=== PATIENT | male | born 1965 | race Caucasian/White ===

== ENCOUNTER 2020-04-09 16:28 | Emergency (ER) | payer OTHER ==
[~2020-04-09] VITALS: Ht 180.3 cm; Wt 88.0 kg
--- OUTSIDE RECORDS SUMMARY | ~2020-04-09 | XMS | Encounter Summary ---
Demographics + + + | Address | [address] | | | [place] [address] | + + + | Home Phone | | + + + | Preferred Language | Unknown | + + + | Marital Status | Single | + + + | Orthodox Affiliation | Unknown | + + + | Race | Unknown | + + + | Ethnic Group | Unknown | + + + Author + + + | Author | [facility] | | | and [place] | + + + | Organization | [facility] | | | and [place] | + + + | Address | Unknown | + + + | Phone | Unavailable | + + + Support + + +---------+ + | Name | Relationship | Address | Phone | + + +---------+ + | Tuan Ferro | [place] | Unknown | | + + +---------+ + Care Team Providers + +------+ + | Care Property Worker Name | Role | Phone | + +------+ + | Mc Martinez MD | PCP | | + +------+ + Encounter Details +--------+ + + + + | Date | Type | Department | Care Team | Description | +--------+ + + + + | 05/06/ | Abstract | [facility] | Santos Huff MD | Pure | | 2013 | | OTOLARYNGOLOGY [address] | [address] | hypercholesterolemia | | | | [address] | [address] [place] | (Primary Dx); | | | | [place] | [place] [address] | Unspecified | | | | [address] | [phone] | hypothyroidism; | | | | [phone] | | Cervicalgia; | | | | | | Displacement of | | | | | | cervical | | | | | | intervertebral disc | | | | | | without myelopathy; | | | | | | Disturbance of skin | | | | | | sensation; Primary | | | | | | localized | | | | | | osteoarthrosis, | | | | | | lower leg, left | +--------+ + + + + Social History + +-------+ +--------+------+ | Tobacco Use | Types | Packs/Day | Years | Date | | | | | Used | | + +-------+ +--------+------+ | Never Assessed | | | | | + +-------+ +--------+------+ + + + | Sex Assigned at | Date Recorded | | | | + + + | Not on file | | + + + documented as of this encounter Plan of Treatment Not on filedocumented as of this encounter Visit Diagnoses + + | Diagnosis | + + | Pure hypercholesterolemia - Primary | + + | Unspecified hypothyroidism | + + | Cervicalgia | + + | Displacement of cervical intervertebral disc without myelopathy | + + | Disturbance of skin sensation | + + | Primary localized osteoarthrosis, lower leg, left | + + documented in this encounter"
--- OUTSIDE RECORDS SUMMARY | ~2020-04-09 | XMS | Encounter Summary ---
Demographics + + + | Address | [address] | | | [place] [address] | + + + | Home Phone | | + + + | Preferred Language | Unknown | + + + | Marital Status | Single | + + + | Episcopal Affiliation | Unknown | + + + | Race | Unknown | + + + | Ethnic Group | Unknown | + + + Author + + + | Author | [facility] | | | and [place] | + + + | Organization | [facility] | | | and [place] [...] Team Providers + +------+ + | Care Hotel Casino Floorperson Name | Role | Phone | + +------+ + | Mc Martinez MD | PCP | | + +------+ + Reason for Visit + + + | Reason | Comments | + + + | New Patient | ear pain in both ears but started i nthe left ear and has moved | | | to the right ear | + + + Evaluate & Treat (Routine) +--------+--------+ + + + + | Status | Reason | Specialty | Diagnoses / | Referred By | Referred To | | | | | Procedures | Contact | Contact | +--------+--------+ + + + + | Closed | | Otolaryngolog | Diagnoses | Juan, | Santos Huff | | | | y | Michelle, | Mc | MD Brittany [address] | | | | | unspecified | MD Arnaldo | [address] | | | | | ear pain/ | [address] | [address] | | | | | pcp Juan/ | [facility] | [place] | | | | | pt/ [place] | [place], [place] | [place] [address] | | | | | Procedures | [address] | Phone: | | | | | NEW PATIENT | Phone: | [phone] | | | | | | [phone] | Fax: | | | | | | Fax: | [phone] | | | | | | [phone] | | +--------+--------+ + + + + Encounter Details +--------+---------+ + + + | Date | Type | Department | Care Team | Description | +--------+---------+ + + + | 05/14/ | Office | [facility] | Santos Huff MD | Dysfunction of | | 2013 | Visit | OTOLARYNGOLOGY [address] | [address] | eustachian tube, | | | | [address] | [address] [place] | bilateral (Primary | | | | [place], [place] | [place] [address] | Dx); Candidiasis of | | | | [address] | [phone] | mouth | | | | [phone] | | | +--------+---------+ + + + Social History + +-------+ +--------+------+ | Tobacco Use | Types | Packs/Day | Years | Date | | | | | Used | | + +-------+ +--------+------+ | Never Smoker | | | | | + +-------+ +--------+------+ + + +---------+ + | Alcohol Use | Drinks/Week | oz/Week | Comments | + + +---------+ + | Not Asked | | | | + + +---------+ + + + + | Sex Assigned at | Date Recorded | | | | + + + | Not on file | | + + + documented as of this encounter Last Filed Vital Signs + + + + + | Vital Sign | Reading | Time Taken | Comments | + + + + + | Blood Pressure | 130/70 | 05/14/2014 11:19 AM | | | | | PDT | | + + + + + | Pulse | 90 | 05/14/2014 11:19 AM | | | | | PDT | | + + + + + | Temperature | - | - | | + + + + + | Respiratory Rate | - | - | | + + + + + | Oxygen Saturation | - | - | | + + + + + | Inhaled Oxygen | - | - | | | Concentration | | | | + + + + + | Weight | 83.9 kg (185 lb) | 05/14/2014 11:19 AM | | | | | PDT | | + + + + + | Height | 180.3 cm (5' 11") | 05/14/2014 11:19 AM | | | | | PDT | | + + + + + | Body Mass Index | 25.8 | 05/14/2014 11:19 AM | | | | | PDT | | + + + + + documented in this encounter Progress Notes Santos Huff MD - 05/14/2014 1:18 PM PDTSee dictation #[id number] signed by Law Huff MD at 05/14/2014 1:23 PM Santos Drake MD - 05/14/2014 12:00 AM PDT ENT AND AUDIOLOGY [address] [place], [place] [address] FAX: [phone] OFFICE VISIT HISTORY: The patient has had problems with his ears on both sides. He notes that at times t hey feel plugged up. They will get so plugged that they have some pain and pressure. He is able then to pop his ears and this relieves the pain, but then the ears tend to have a amairani ing, puttering sound and sounds like eustachian tube dysfunction. He has not had any proble ms with his balance and when they are plugged, he does not hear as well as he should. He al so has a sore place on the right side of his tongue that he would like to have examined. No other complaints at the current time. PHYSICAL EXAMINATION GENERAL: Examination shows an alert 48-year-old male. HEENT: Skin of the face, nose, and ears all appear smooth and healthy. Parotid and submand ibular glands were smooth. Facial movement symmetrical, without any weakness noted. Ear can als are open, they are clear. Drums were clear. No middle ear effusion or abnormality noted. No evidence of any retraction. Nasal passages: No obstruction. No mass or lesion seen on e ither side. Floor of the mouth, buccal mucosa, hard palate, teeth, lips and gums all appear to be healthy. He has a lot of whitish coating on his tongue. He has a reddened area anter ior on the lateral edge of his tongue for about 0.5 cm long. It is not firm or elevated but it is in the whitish coating of what appears to be thrush. No mass seen in the oropharynx. Posterior pharyngeal wall was smooth. Tongue and soft palate otherwise move symmetrically. NECK: There are no masses or lymphadenopathy. Thyroid gland is smooth. Trachea is midline. Good range of motion of the neck without any pain or discomfort noted. The patient was sent for tympanograms and these came back very normal A-shaped tympanograms . IMPRESSION 1. EUSTACHIAN TUBE DYSFUNCTION. 2. ORAL THRUSH. PLAN: The patient was placed on nystatin oral suspension. He was also placed on some Flonas e to see if this helps the eustachian tubes to function. He will be seen again in 1 month's time and the area on his tongue will be reexamined. Santos Huff MD GM / AF JOB #: [id number] signed by Santos Huff MD at 05/19/2014 10:26 AM David ferrer in this encounter Plan of Treatment Not on filedocumented as of this encounter Visit Diagnoses + + | Diagnosis | + + | Dysfunction of Eustachian tube, bilateral - Primary | + + | Candidiasis of mouth | + + documented in this encounter
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
--- OUTSIDE RECORDS SUMMARY | ~2020-04-09 | XMS | Encounter Summary ---
Demographics + + + | Address | [address] | | | [place] [address] | + + + | Home Phone | | + + + | Preferred Language | Unknown | + + + | Marital Status | Single | + + + | Samaritan Affiliation | Unknown | + + + | Race | Unknown | + + + | Ethnic Group | Unknown | + + + Author + + + | Author | [facility] | | | and [place] | + + + | Organization | [facility] | | | and [place] | [...] Team Providers + +------+ + | Care Manufacturing Machine Operator Name | Role | Phone | + +------+ + PCP | Unavailable | + +------+ + Encounter Details +--------+ + + + + | Date | Type | Department | Care Team | Description | +--------+ + + + + | 04/14/ | Hospital | [facility] | Ashu Moreno E, | | | 2004 | Encounter | [facility] | [address] | | | | | [address] | [place] | | | | | [place] | [phone] | | | | | [address] | | | | | | [phone] | | | +--------+ + + + + Social [...] filedocumented as of this encounter Visit Diagnoses Not on filedocumented in this encounter"
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
--- OUTSIDE RECORDS SUMMARY | ~2020-04-09 | XMS | Encounter Summary ---
Demographics + + + | Address | [address] | | | [place] [address] | + + + | Home Phone | | + + + | Preferred Language | Unknown | + + + | Marital Status | Single | + + + | Samaritan Affiliation | Unknown | + + + | Race | Unknown | + + + | Ethnic Group | Unknown | + + + Author + + + | Author | [facility] | | | and [place] | + + + | Organization | [facility] | | | and [place] [...] Team Providers + +------+ + | Care Grain Roaster Name | Role | Phone | + +------+ + PCP | Unavailable | + +------+ + Encounter Details +--------+ + + + + | Date | Type | Department | Care Team | Description | +--------+ + + + + | 03/12/ | Hospital | [facility] | Travis Peres | | | 2003 | Encounter | MED CTR XRAY [address] | MD Arnaldo Need | | | | | [place] | updated address | | | | | [place] [address] | | | | | | [phone] | | | +--------+ + + + [...]
--- OUTSIDE RECORDS SUMMARY | ~2020-04-09 | XMS | Encounter Summary ---
Demographics + + + | Address | [address] | | | [place] [address] | + + + | Home Phone | | + + + | Preferred Language | Unknown | + + + | Marital Status | Single | + + + | Judaism Affiliation | Unknown | + + + | Race | Unknown | + + + | Ethnic Group | Unknown | + + + Author + + + | Author | [facility] | | | and [place] | + + + | Organization | [facility] | | | and [place] [...] Team Providers + +------+ + | Care Pharmacy Associate Name | Role | Phone | + +------+ + | Mc Martinez MD | PCP | | + +------+ + Reason for Visit + + + | Reason | Comments | + + + | Back Pain | Right sided low back pain | + + + Encounter Details +--------+---------+ + + + | Date | Type | Department | Care Team | Description | +--------+---------+ + + + | 11/09/ | Office | [facility] | Cristaraymundokassandra, | Right-sided thoracic | | 2015 | Visit | [address]SIATRY [address] | [address] | back pain (Primary | | | | [address] | [address] | Dx); Thoracic disc | | | | [place], [place] | [place] [address] | herniation; | | | | [address] | [phone] | Congenital spinal | | | | [phone] | | stenosis of lumbar | | | | | | region; Low back | | | | | | pain with sciatica, | | | | | | sciatica laterality | | | | | | unspecified, | | | | | | unspecified back | | | | | | pain laterality | +--------+---------+ + + + Social History [...] + + + | Blood Pressure | 134/68 | 11/09/2015 1:00 PM | | | | | PST | | + + + + + | Pulse | 64 | 11/09/2015 1:00 PM | | | | | PST | | + + + + + [...] Weight | 95.3 kg (210 lb) | 11/09/2015 1:00 PM | | | | | PST | | + + + + + | Height | 180.3 cm (5' 11") | 11/09/2015 1:00 PM | | | | | PST | | + + + + + | Body Mass Index | 29.29 | 11/09/2015 1:00 PM | | | | | PST | | + + + + + documented in this encounter Progress Notes Rita Velasco PA-C - 11/09/2015 1:01 PM PSTFormatting of this note might be differe nt from the original. CHIEF COMPLAINT: Chief Complaint Patient presents with Back Pain Right sided low back pain HISTORY OF PRESENT ILLNESS: The patient is a 50 y.o. male here for follow up of mid back p ain, mostly right sided. He has been participating in physical therapy for the last 6 months and has noticed an improvement of his symptoms. He reports having radiating pain from the right thoracic region and into the ribs. He He rates the pain as a consistent 7 on a scale of 1-10. The symptoms are daily. He descri bes the pain as aching, mostly to the thoracic region around the right scapula. The patien t does not report numbness. He does not report weakness. He reports intermittent severe pa in to the right rib region, this was relieved by physical therapy. His symptoms worsen with any lifting, carrying and walking or bending, he also reports forceful coughing increases t he mid-back pain. His symptoms improve with changing position and lying flat on his back. The patient does not report any change in bowel or bladder function or saddle anesthesia re cently. He has tried narcotic medications, NSAIDS and PT. CURRENT MEDICATIONS: Current Outpatient Prescriptions Medication Sig Dispense Refill cyclobenzaprine (FLEXERIL) 5 MG tablet 5mg PO TID, please start at night as can be yosi ting. 20 tablet 11 HYDROcodone-acetaminophen (NORCO) 5-325 mg per tablet 1 by mouth q 6 hours PRN pain, bu t use sparingly over 2 months Please dispense VICODIN brand name 90 tablet 0 meloxicam (MOBIC) 15 mg tablet Take 1 tablet by mouth Daily as needed for Pain. 30 tabl et 11 No current facility-administered medications for this visit. ALLERGIES: No Known Allergies REVIEW OF SYSTEMS: A multisystem review of system checklist was reviewed with the patient and shows only the p ain and/or parasthesias and other complaints as in HPI. All remaining review of systems was negative. PHYSICAL EXAMINATION: Filed Vitals: 11/09/15 1300 BP: 134/68 Pulse: 64 PainSc: 7 GENERAL: The patient is well developed and [...] has no apparent deficits with short or exterminator termite memory. He has appropriate fund of knowledge Cranial nerves 2-12 appear grossly intact. Sensory exam does not show diminished sensation to light touch in the upper and lower extre mities. REFLEX: RIGHT LEFT BICEPS 2+ 2+ BRACHIORADIALIS 2+ 2+ TRICEPS 2+ 2+ PATELLAR 2+ 2+ ACHILLES 2+ 2+ MUSCULOSKELETAL There is no major palpable deformity of the spine. Straight leg raise and slump-sit are negative. Yang's maneuver and impingement testing w ere negative for any groin pain. There was no tenderness to palpation over the greater troch anters or sacral sulci. The patient localized the majority of the pain to the right T7-T10 r egion. Lumbar facet loading was positive to the right. Strength testing showed 5/5 strength throughout the lower extremities. The patient was able to heel and toe walk without difficul ty. There was no redness, effusion, warmth or joint line tenderness in the knees or ankles. Range of motion testing of the cervical spine was unremarkable. Spurling sign was negative. Shoulder examination shows well preserved range of motion with external rotation, internal rotation and abduction. Impingement testing was Negative. There was no tenderness over th e bicipital groove or over the AC joint. Speed's test was Negative. Empty can test was Nega tive. Strength testing, including strength testing of the infraspinatus, supraspinatus an d subscapularis, in bilateral upper extremities showed 5/5 strength with no focal weakness. RADIOGRAPHIC REVIEW: Lumbar xray from 03/2015 shows mild DDD mostly at L4/L5 region. Thoracic MRI shows degenera tive disc disease with multiple disc protrusions from T7-T11 with Modic endplates and some l evels having cord contact. The largest is at T10-11 that protrudes to the right creating ri ght foramen narrowing. His lumbar MRI shows congenital narrowing of the central spinal diana l due to facet changes, moderate narrowing of the central spinal canal at L3-L4 and L4-L5. IMPRESSION: Encounter Diagnoses Name Primary? 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 The patient has had significant conservative care including medications (NSAIDS and narc otics), PT (multiple sessions over the years) and care specialist. Unfortunately he contin ues to have significant discomfort. It appears to me that the pain is primarily coming from the thoracic disc bulges. I did feel that he would be a good candidate for interventional procedures and I offered to sent a referral to [facility] in [place] for possible inte rventional procedures. 2. I discussed with the patient that the best thing to do for back pain, half-way, is gett ing to and/or maintaining an appropriate weight, core strengthening and avoiding aggravating activities by using appropriate body mechanics/ergonomics. We reviewed a home exercise pro gram including aerobic conditioning, isometric core strengthening and gentle stretching. 3. At the patients next appointment he will follow up with Dr. Marquez. ELECTRONICALLY EDITED AND SIGNED BY: Rita Velasco PA-C, 11/09/2014 documented in t his encounter Plan of Treatment Not on filedocumented as of this encounter Visit Diagnoses + + | Diagnosis | + + | Right-sided thoracic back pain - Primary | + + | Thoracic disc herniation Displacement of thoracic intervertebral disc without | | myelopathy | + + | Congenital spinal stenosis of lumbar region | + + | Low back pain with sciatica, sciatica laterality unspecified, unspecified back pain | | laterality | + + documented in this encounter
--- OUTSIDE RECORDS SUMMARY | ~2020-04-09 | XMS | Encounter Summary ---
Demographics + + + | Address | [address] | | | [place] [address] | + + + | Home Phone | | + + + | Preferred Language | Unknown | + + + | Marital Status | Single | + + + | Orthodox Affiliation | Unknown | + + + | Race | Unknown | + + + | Ethnic Group | Unknown | + + + Author + + + | Author | [facility] | | | and [place] | + + + | Organization | [facility] | | | and [place] [...] Team Providers + +------+ + | Care Perianesthesia Manager Name | Role | Phone | + +------+ + PCP | Unavailable | + +------+ + Encounter Details +--------+ + + + + | Date | Type | Department | Care Team | Description | +--------+ + + + + | 12/08/ | [facility] | [facility] | Ashu Moreno, | | | 2000 | Encounter | MED CTR XRAY [address] | MD Mendes [facility] | | | | | [place] | [place] | | | | | [place] [address] | [address] | | | | | [phone] | | | +--------+ + + + [...]
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
--- OUTSIDE RECORDS SUMMARY | ~2020-04-09 | XMS | Encounter Summary ---
Demographics + + + | Address | [address] | | | [place] [address] | + + + | Home Phone | | + + + | Preferred Language | Unknown | + + + | Marital Status | Single | + + + | Mormonism Affiliation | Unknown | + + + | Race | Unknown | + + + | Ethnic Group | Unknown | + + + Author + + + | Author | [facility] | | | and [place] | + + + | Organization | [facility] | | | and [place] [...] Team Providers + +------+ + | Care Skeet Operator Name | Role | Phone | + +------+ + PCP | Unavailable | + +------+ + Encounter Details +--------+ + + + + | Date | Type | Department | Care Team | Description | +--------+ + + + + | 12/01/ | Hospital | [facility] | | | | 1995 | Encounter | MED CTR MP INTRA OP | | | | | | [address] | | | | | | [place] | | | | | | [address] | | | | | | [phone] | | | +--------+ + + + [...]
--- OUTSIDE RECORDS SUMMARY | ~2020-04-09 | XMS | Encounter Summary ---
Demographics + + + | Address | [address] | | | [place] [address] | + + + | Home Phone [...] + + + | Author | [facility] | | | and [place] | + + + | Organization | [facility] | | | and [place] [...] Team Providers + +------+ + | Care Physical Therapist Clinic Director Name | Role | Phone | + [...] + + | Closed | Specialty | Pain Medicine | Diagnoses | | | | | Services | | Bilateral | Rod, | | | | Required | | low back | Rita, | | | | | | pain, with | PA-C [address] | | | | | | sciatica | [address], | | | | | | presence | [address] | | | | | | unspecified | [place] | | | | | | Thoracic | [address] | | | | | | disc | Phone: | | | | | | herniation | [phone] | | | | | | Procedures | Fax: | | | | | | 10/20 PEND [place] | [phone] | | | | | | BASKET | | | +--------+ + + + + + Encounter Details +--------+ + + + + | Date | Type | Department | Care Team | Description | +--------+ + + + + | 10/12/ | Orders Only | [facility] [place] | Rod, | Bilateral low back | | 2016 | | PHYSIATRY [address] | [place] [address] | pain, with sciatica | | | | [address] | [address] | presence unspecified | | | | [place] | [place] [address] | (Primary Dx); | | | | [address] | [phone] | Thoracic disc | | | | [phone] | | herniation | +--------+ + + + + Social [...] as of this encounter Plan of Treatment + + +--------+ + + | Name | Type | Priori | Associated Diagnoses | Order Schedule | | | | ty | | | + + +--------+ + + | Ambulatory referral | Outpatient | Routin | Bilateral low back | Ordered: 10/12/2015 | | to Pain Clinic | Referral | e | pain, with sciatica | | | | | | presence | | | | | | unspecified | | | | | | Thoracic disc | | | | | | herniation | | + + +--------+ + + documented as of this encounter Visit Diagnoses + + | Diagnosis | + + | Bilateral low back pain, with sciatica presence unspecified - Primary | + + | 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
--- OUTSIDE RECORDS SUMMARY | ~2020-04-09 | XMS | Encounter Summary ---
Demographics + + + | Address | [address] | | | [place] [address] | + + + | Home Phone | | + + + | Preferred Language | Unknown | + + + | Marital Status | Single | + + + | Synagogue Affiliation | Unknown | + + + | Race | Unknown | + + + | Ethnic Group | Unknown | + + + Author + + + | Author | [facility] | | | and [place] | + + + | Organization | [facility] | | | and [place] | [...] Team Providers + +------+ + | Care Stamp Mounter Name | Role | Phone | + +------+ + PCP | Unavailable | + +------+ + Encounter Details +--------+ + + + + | Date | Type | Department | Care Team | Description | +--------+ + + + + | 04/27/ | Hospital | [facility] | Ashu Moreno, | | | 2004 | Encounter | MED CTR LABORATORY | [address] [place] [address] | | | | | [address] | [place] | | | | | [place] | [address] | | | | | [address] | | | | | | [phone] | | | +--------+ + + + [...]
--- OUTSIDE RECORDS SUMMARY | ~2020-04-09 | XMS | Encounter Summary ---
Demographics + + + | Address | [address] | | | [place] [address] | + + + | Home Phone | | + + + | Preferred Language | Unknown | + + + | Marital Status | Single | + + + | Faith Affiliation | Unknown | + + + | Race | Unknown | + + + | Ethnic Group | Unknown | + + + Author + + + | Author | [facility] | | | and [place] | + + + | Organization | [facility] | | | and [...] Team Providers + +------+ + | Care Guide Rail Cleaner Name | Role | Phone | + +------+ + | Mc Martinez MD | PCP | | + +------+ + Reason for Visit +--------+--------+ + | Reason | Onset | Comments | | | Date | | +--------+--------+ + | Other | 03/29/ | | | | 2016 | | +--------+--------+ + Encounter Details +--------+ + + + + | Date | Type | Department | Care Team | Description | +--------+ + + + + | 03/29/ | Telephone | [facility] [place] | Cristay[place]tylor, | Other | | 2015 | | [address]SIATRY [address] | [address] | | | | | [address] | [address] | | | | | [place], [place] | [place] [address] | | | | | [address] | [phone] | | | | | [phone] | | | +--------+ + + + [...] this encounter Miscellaneous Notes Telephone Encounter - Rita Velasco PA-C - 03/29/2016 11:59 AM PDTI last rx hydrocod one on 10/07/2015. We will note and not give him anymore. elephone Encounter - Emiliana Morris CMA - 03/29/20 16 11:52 AM PDTReceived a phone call from MALLY Tierney at [facility], stating they have rece ived patient's referral and are working on setting him up for injections. Kelsy stated they did a drug screening and patient came back positive for THC at a pretty high level. Kelsy bobby patient admitted to smoking marijuana on a daily basis. Kelsy states she wanted to info rm our office just in case we were still prescribing narcotics and/or have a pain contract w ith the patient. Last Hydrocodone refill was 10/07/2015. documented in this encounter Plan of Treatment Not on filedocumented as of this encounter Visit Diagnoses Not on filedocumented in this encounter"
--- OUTSIDE RECORDS SUMMARY | ~2020-04-09 | XMS | Encounter Summary ---
Demographics + + + | Address | [address] | | | [place] [address] | + + + | Home Phone | | + + + | Preferred Language | Unknown | + + + | Marital Status | Single | + + + | Bahai Affiliation | Unknown | + + + | Race | Unknown | + + + | Ethnic Group | Unknown | + + + Author + + + | Author | [facility] | | | and [place] | + + + | Organization | [facility] | | | and [place] [...] Team Providers + +------+ + | Care Systems Support Officer Name | Role | Phone | + +------+ + PCP | Unavailable | + +------+ + Encounter Details +--------+ + + + + | Date | Type | Department | Care Team | Description | +--------+ + + + + | 11/27/ | [facility] | [facility] | Ashu Moreno, | | | 2000 | Encounter | MED CTR XRAY [address] | [place] [facility] | | | | | [address] | [place] | | | | | [place] [address] | [address] | | | | | [phone] | | | +--------+ + + + [...]
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
--- OUTSIDE RECORDS SUMMARY | ~2020-04-09 | XMS | Encounter Summary ---
Demographics + + + | Address | [address] | | | [place] [address] | + + + | Home Phone | | + + + | Preferred Language | Unknown | + + + | Marital Status | Single | + + + | Christianity Affiliation | Unknown | + + + | Race | Unknown | + + + | Ethnic Group | Unknown | + + + Author + + + | Author | [facility] | | | and [place] | + + + | Organization | [facility] | | | and [...] Team Providers + +------+ + | Care Home Restoration Service Cleaner Name | Role | Phone | + +------+ + PCP | Unavailable | + +------+ + Encounter Details +--------+ + + + + | Date | Type | Department | Care Team | Description | +--------+ + + + + | 02/20/ | [facility] | [facility] | Ashu Moreno, | | | 2005 | Encounter | MED CTR XRAY [address] | MD Mendes [facility] | | | | | [place] | [place] | | | | | [place] [address] | [address] | | | | | [phone] | | | +--------+ + + + [...]
--- OUTSIDE RECORDS SUMMARY | ~2020-04-09 | XMS | Encounter Summary ---
Demographics + + + | Address | [address] | | | [place] [address] | + + + | Home Phone | | + + + | Preferred Language | Unknown | + + + | Marital Status | Single | + + + | Yarsani Affiliation | Unknown | + + + | Race | Unknown | + + + | Ethnic Group | Unknown | + + + Author + + + | Author | [facility] | | | and [place] | + + + | Organization | [facility] | | | and [...] Team Providers + +------+ + | Care Deckhand Fishing Vessel Name | Role | Phone | + +------+ + | Mc Martinez MD | PCP | | + +------+ + Reason for Visit + + + | Reason | Comments | + + + | Ear Fullness | | + + + Evaluate & Treat (Routine) +--------+--------+ + + + + | Status | Reason | Specialty | Diagnoses / | Referred By | Referred To | | | | | Procedures | Contact | Contact | +--------+--------+ + + + + | Closed | | Audiology | Diagnoses | Huff, | Filipe, | | | | | Dysfunction | Santos Soto MD | MS Juan | | | | | of | [address] | CCC-A [address] | | | | | eustachian | [address] | [address] | | | | | tube tymps | [place] | [address] [place] | | | | | olny/pcp | [place], [place] | [place], [place] | | | | | martinez/moda | [address] | [address] Phone: | | | | | Procedures | Phone: | [phone] | | | | | OFFICE | [phone] | Fax: | | | | | VISIT | Fax: | [phone] | | | | | REGULAR | [phone] | | +--------+--------+ + + + + Encounter Details +--------+---------+ + + + | Date | Type | Department | Care Team | Description | +--------+---------+ + + + | 05/14/ | Office | [facility] | Juan Dent MS | Dysfunction of | | 2014 | Visit | AUDIOLOGY AND | [facility] [address] | eustachian tube, | | | | [facility] | [address] [place] | bilateral (Primary | | | | [address] | [place] [address] | Dx) | | | | [address] [place] | [phone] | | | | | [place] [address] | | | | | | [phone] | | | +--------+---------+ + + + [...] documented as of this encounter Progress Notes Juan Dent CCC-A - 05/15/2014 10:[address] Huff, Sr. Tympanometry showed normal Type A tracings in both ears. Follow-up with Dr. Huff ENT. Thank you. documen maryse in this encounter Procedure Notes BENNIE FIORE - 05/14/2014 12:00 AM PDTAssociated Order(s): DIAGNOSTIC REPORT - EXTERNAL SCAN documented in this enco unter Plan of Treatment Not on filedocumented as of this encounter Procedures + +--------+ + + + | Procedure Name | Priori | Date/Time | Associated Diagnosis | Comments | | | ty | | | | + +--------+ + + + | DIAGNOSTIC REPORT - | | 05/14/2014 | | | | EXTERNAL SCAN | | 12:00 AM | | | | | | PDT | | | + +--------+ + + + documented in this encounter Visit Diagnoses + + | Diagnosis | + + | Dysfunction of Eustachian tube, bilateral - Primary | + + documented in this encounter"
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
--- OUTSIDE RECORDS SUMMARY | ~2020-04-09 | XMS | Encounter Summary ---
Demographics + + + | Address | [address] | | | [place] [address] | + + + | Home Phone | | + + + | Preferred Language | Unknown | + + + | Marital Status | Single | + + + | Protestant Affiliation | Unknown | + + + | Race | Unknown | + + + | Ethnic Group | Unknown | + + + Author + + + | Author | [facility] | | | and [place] | + + + | Organization | [facility] | | | and [...] Team Providers + +------+ + | Care Cuff Folder Name | Role | Phone | + +------+ + | Mc Martinez MD | PCP | | + +------+ + Reason for Visit + +--------+ + | Reason | Onset | Comments | | | Date | | + +--------+ + | Medication Orders | 05/14/ | | | | 2014 | | + +--------+ + Encounter Details +--------+ + + + + | Date | Type | Department | Care Team | Description | +--------+ + + + + | 05/14/ | Telephone | [facility] [place] | Rod, | Medication Orders | | 2014 | | PHYSIATRY [address] | [address] | | | | | [address] | [address] | | | | | [place], [place] | [place] [address] | | | | | [address] | [phone] | | | | | [phone] | | | +--------+ + + + [...] Telephone Encounter - Emiliana Morris CMA - 05/14/2015 2:37 PM PDTCall from ioana [place] at [facility] in [place] stating patient's insurance does not cover brand name Vicodin 5-325 but will cover it in 5-300. Pharmacist informed per Rita alas to change mg to 5-300. Electro nically signed by Emiliana Morris CMA at 05/14/2015 2:39 PM PDTdocumented in this encounter Plan of Treatment Not on filedocumented as of this encounter Visit Diagnoses Not on filedocumented in this encounter"
--- OUTSIDE RECORDS SUMMARY | ~2020-04-09 | XMS | Encounter Summary ---
Demographics + + + | Address | [address] | | | [place] [address] | + + + | Home Phone | | + + + | Preferred Language | Unknown | + + + | Marital Status | Single | + + + | Sabianism Affiliation | Unknown | + + + | Race | Unknown | + + + | Ethnic Group | Unknown | + + + Author + + + | Author | [facility] | | | and [place] | + + + | Organization | [facility] | | | and [place] | [...] Team Providers + +------+ + | Care Flamer After Lasting Name | Role | Phone | + +------+ + PCP | Unavailable | + +------+ + Encounter Details +--------+ + + + + | Date | Type | Department | Care Team | Description | +--------+ + + + + | 11/20/ | Hospital | [facility] | Ashu Moreno E, | | | 2000 | Encounter | MED CTR GENERIC OP | MD [address] | | | | | CONV DEPT [address] | [place] | | | | | [place], | [id number] | | | | | [place] [address] | | | | | | [phone] | | | +--------+ + + + [...]
--- OUTSIDE RECORDS SUMMARY | ~2020-04-09 | XMS | Encounter Summary ---
Demographics + + + | Address | [address] | | | [place] [address] | + + + | Home Phone | | + + + | Preferred Language | Unknown | + + + | Marital Status | Single | + + + | Mu-Ism Affiliation | Unknown | + + + | Race | Unknown | + + + | Ethnic Group | Unknown | + + + Author + + + | Author | [facility] | | | and [place] | + + + | Organization | [facility] | [...] Team Providers + +------+ + | Care Senior Sql Dba Name | Role | Phone | + +------+ + PCP | Unavailable | + +------+ + Encounter Details +--------+ + + + + | Date | Type | Department | Care Team | Description | +--------+ + + + + | 06/30/ | Hospital | [facility] | Joseph oBwen FNP | | | 2009 | Encounter | HOSPITAL XRAY [address] | [address] | | | | | [place] | [address] [employer], | | | | | [place], [place] | [place] [address] | | | | | [address] | [phone] | | | | | [phone] | | | +--------+ + + + [...]
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
--- OUTSIDE RECORDS SUMMARY | ~2020-04-09 | XMS | Encounter Summary ---
Demographics + + + | Address | [address] | | | [place] [address] | + + + | Home Phone | | + + + | Preferred Language | Unknown | + + + | Marital Status | Single | + + + | Confucianism Affiliation | Unknown | + + + | Race | Unknown | + + + | Ethnic Group | Unknown | + + + Author + + + | Author | [facility] | | | and [place] | + + + | Organization | [facility] | | | and [...] Team Providers + +------+ + | Care Award Machine Operator Name | Role | Phone | + +------+ + PCP | Unavailable | + +------+ + Encounter Details +--------+ + + + + | Date | Type | Department | Care Team | Description | +--------+ + + + + | 03/15/ | Hospital | [facility] | Ashu Moreno E, | | | 2000 | Encounter | MED CTR MP INTRA OP | MD [address] | | | | | [address] | [place] | | | | | [place] | [id number] | | | | | [address] | | | | | | [phone] | | | +--------+ + + + [...]
--- OUTSIDE RECORDS SUMMARY | ~2020-04-09 | XMS | Encounter Summary ---
Demographics + + + | Address | [address] | | | [place] [address] | + + + | Home Phone | | + + + | Preferred Language | Unknown | + + + | Marital Status | Single | + + + | Muslim Affiliation | Unknown | + + + | Race | Unknown | + + + | Ethnic Group | Unknown | + + + Author + + + | Author | [facility] | | | and Amaur[place] | + + + | Organization | [facility] | | | and [...] Team Providers + +------+ + | Care Receptionist Clerk Name | Role | Phone | + +------+ + PCP | Unavailable | + +------+ + Encounter Details +--------+ + + + + | Date | Type | Department | Care Team | Description | +--------+ + + + + | 11/14/ | Hospital | [facility] | | | | 2000 | Encounter | MED CTR XRAY [address] | | | | | | [place] | | | | | | [place] [address] | | | | | | [phone] | | | +--------+ + + + [...]
--- OUTSIDE RECORDS SUMMARY | ~2020-04-09 | XMS | Encounter Summary ---
Demographics + + + | Address | [address] | | | [place] [address] | + + + | Home Phone | | + + + | Preferred Language | Unknown | + + + | Marital Status | Single | + + + | Zoroastrian Affiliation | Unknown | + + + | Race | Unknown | + + + | Ethnic Group | Unknown | + + + Author + + + | Author | [facility] | | | and [place] | + + + | Organization | [facility] | | | and [...] Team Providers + +------+ + | Care Spinal Surgeon Name | Role | Phone | + +------+ + PCP | Unavailable | + +------+ + Encounter Details +--------+ + + + + | Date | Type | Department | Care Team | Description | +--------+ + + + + | 04/07/ | Hospital | [facility] | Travis Peres | | | 2003 | Encounter | MED CTR XRAY [address] | MD Arnaldo Need | | | | | [place] | updated address | | | | | [place] [address] | | | | | | [phone] | | | +--------+ + + + [...]
[~2020-04-09 16:28] MED LIST: NORCO 5-325 TA1 EACH PO
[2020-04-09] MEDS ORDERED: METFORMIN HCL500 M1 PO (16:49)
[2020-04-09] MEDS ORDERED: AMOX TR-K CLV1 EAC1 PO (16:49)
[2020-04-09] MEDS ORDERED: ATORVASTATIN CA20 MG PO (16:50)
[2020-04-09] MEDS ORDERED: NORCO 5-325 TA1 EACH PO (20:05)
[2020-04-09] MEDS ORDERED: VICODIN HP 10-1 EAC1 PO (20:14)
== END 2020-04-09 20:16 | disposition home or self-care (01) ==
LOC: ED 16:28
PROC: 0C95XZZ Drainage of Upper Gingiva, External Approach (ICD-10-PCS; principal; 2020-04-09)
DX: K05.319 Chronic periodontitis, localized, unspecified severity (principal); E11.9 Type 2 diabetes mellitus without complications; Z79.84 Long term (current) use of oral hypoglycemic drugs; Z79.899 Other long term (current) drug therapy
CPT/HCPCS: 70487; 80048; 85025; 99284-25; J1885; Q9967

== ENCOUNTER 2021-04-28 14:48 | Emergency (ER) | payer OTHER ==
[~2021-04-28] VITALS: Ht 180.3 cm; Wt 81.7 kg
[~2021-04-28 14:48] MED LIST changes: +AMOX TR-K CLV1 EAC1 PO; +ATORVASTATIN CA20 MG PO; +METFORMIN HCL500 M1 PO; +VICODIN HP 10-1 EAC1 PO
--- OUTSIDE RECORDS SUMMARY | 2021-04-28 14:50 | XMS ---
PreManage Notification: MARY GEIGER Security Thread Weaver Events No recent Security Events currently on file [facility] There are no care providers on record at this time. Saundra has no Care Guidelines for this patient. Renata VISIT COUNT (12 MO.) 1 RONI Gonsalez TOTAL 1 NOTE: Visits indicate total known visits. ED/UCC VISIT TRACKING (12 MO.) 04/28/2021 14:49 RONI Dave [place] TYPE: Emergency COMPLAINT: - L FOOT PAIN INPATIENT VISIT TRACKING (12 MO.) No inpatient visits to display in this time frame [id number]
[2021-04-28] MEDS ORDERED: IBUPROFEN800 MG PO (16:09)
[2021-04-28] MEDS ORDERED: GABAPENTIN300 MG PO (16:09)
[2021-04-28] MEDS ORDERED: HYDROCODON-ACE1 EA10 PO (17:32)
== END 2021-04-28 17:55 | disposition home or self-care (01) ==
LOC: ED 14:48
DX: S93.505A Unspecified sprain of left lesser toe(s), initial encounter (principal); E11.9 Type 2 diabetes mellitus without complications; W22.8XXA Striking against or struck by other objects, initial encounter; Z79.899 Other long term (current) drug therapy; Z79.84 Long term (current) use of oral hypoglycemic drugs
CPT/HCPCS: 73660; 99283-25

== ENCOUNTER 2022-02-22 07:58 | Day surgery (SDC) | payer OTHER ==
[~2022-02-22] VITALS: Ht 180.3 cm; Wt 77.3 kg
--- NOTE | ~2022-02-22 | OR ---
[facility] [address] [place] [address], [place] [address] Draft DATE OF OPERATION: 02/22/2022 SURGEON: Placido Gordon MD PREOPERATIVE DIAGNOSIS: Left pharyngeal lesion. POSTOPERATIVE DIAGNOSIS: Left pharyngeal lesion. PROCEDURE: Direct laryngoscopy, biopsy of left pharyngeal lesion. ANESTHESIA: General orotracheal; Rios EUGENE. PREOPERATIVE HISTORY: Mr. Bond is a nice 56-year-old man with lesion on the right pharynx. He has had some discomfort in this area. Noticed some bleeding when he coughed and cleared his throat. Exam in the office showed some prominent tissue on the left pharyngeal wall just at the level of the epiglottis. He was taken to the operating room for the above-mentioned procedures. PROCEDURE IN DETAIL: After informed consent, the patient was taken to the operating room, placed in supine position where general orotracheal anesthesia was induced. The patient and procedure were verified. The patient was repositioned with a tooth guard placed. Anterior commissure laryngoscope used to visualize the hypopharynx and larynx. Digital palpation was performed initially of base of tongue, lateral pharyngeal wall. No abnormalities were identified. The laryngoscopy was essentially within normal limits. Larynx was clear. There was some prominent lymphoid tissue on the left pharynx. On the lateral pharyngeal wall just at the level of the epiglottis. This appeared to be benign lymphoid tissue. Several biopsies with a small cup forceps were performed, sent to pathology in formalin. Minimal bleeding stopped afterwards. No other abnormalities identified. Scope was removed. The patient was awakened, extubated, and transported to recovery room in good condition. No complications. BLOOD LOSS: Minimal. PATIENT NAME: MARY BOND OPERATIVE REPORT DATE OF : 67 REPORT #: [id number] PHYSICIAN: PLACIDO GORDON MD PCP: ANGELA SAEED MD REPORT IS CONFIDENTIAL AND NOT TO BE RELEASED WITHOUT AUTHORIZATION [facility] [address] [place] [address] Draft SPECIMEN: To pathology. DRAINS: None. Placido Gordon MD GC/MODL /[id number] Copies: ~ PATIENT NAME: MARY BOND OPERATIVE REPORT DATE OF : 67 REPORT #: [id number] PHYSICIAN: PLACIDO GORDON MD PCP: ANGELA SAEED MD REPORT IS CONFIDENTIAL AND NOT TO BE RELEASED WITHOUT AUTHORIZATION
[~2022-02-22 07:58] MED LIST changes: +GABAPENTIN300 MG PO; +HYDROCODON-ACE1 EA10 PO; +IBUPROFEN800 MG PO; +JARDIANCE25 MG PO; +LIPITOR20 MG
--- NOTE | 2022-02-22 09:04 | NUR ---
02/22/22 0904 Karen Justin 0900-PATIENT ARRIVED TO PACU ON 6L MASK NONAROUSABLE RR EVEN. NO DRAINAGE TO MOUTH. SR. IVF INFUSING. GLUCOSE CHECKED 276 NO NEW ORDERS RECEIVED.
--- NOTE | 2022-02-22 10:21 | NUR ---
0935: PATIENT BACK IN DAY SURGERY ROOM FROM PACU. DENIES PAIN. DENIES NAUSEA. IV SITE WNL. NO BLOODY DRAINAGE SEEN IN MOUTH. VS CHECKED. GIVEN ICE WATER, APPLESAUCE AND PUDDING. CALL LIGHT WITHIN REACH. 1020: DISCHARGE INSTRUCTIONS GIVEN TO PATIENT. VS CHECKED. TOLERATED PO. PATEINT ASSISTED OOB. PATIENT GETTING DRESSED.
--- NOTE | 2022-02-22 10:39 | NUR ---
1030: IV DC'D WNL. TIP INTACT. DRESSING APPLIED. PATIENT DISCHARGED TO HOME WITH MOTHER VIA WHEELCHAIR.
--- NOTE | 2022-02-23 00:22 | EKG ---
[facility] [address] [facility] [place] [address] Signed Normal sinus rhythm Normal ECG No previous ECGs available Confirmed by DIONISIO PARR MD ([id number]) on 02/23/2022 12:22:04 AM Electronically Signed By: DIONISIO PARR MD 02/23/2221 PATIENT NAME: MARY GEIGER DAREN Electrocardiogram DATE OF : 67 PHYSICIAN: DIONISIO PARR MD REPORT #: [id number] REPORT IS CONFIDENTIAL AND NOT TO BE RELEASED WITHOUT AUTHORIZATION
--- NOTE | 2022-02-24 14:06 | PATH ---
[facility] [address] [place], [place] [address] Signed SPECIMEN(S): A LEFT PHARYNGEAL LESION SPECIMEN SOURCE: A. LEFT PHARYNGEAL LESION CLINICAL HISTORY: Left side pharyngeal lesion, hemoptysis. Direct laryngoscopy with biopsy. FINAL PATHOLOGIC DIAGNOSIS: Pharynx lesion, left, biopsy: - Polypoid squamous mucosa with crushed lymphoid aggregates. - See comment. COMMENT: The lymphoid aggregates are comprised of small mature lymphocytes and crush artifact is present. The lymphoid cells are a mixture of T-cells and B-cells. No atypical lymphoid cells are identified on HE stain. This is favored to represent benign lymphoid tissue, but the case will be sent for hematopathology consultation and the results reported in an addendum. NAL:cml:C2NR MICROSCOPIC EXAMINATION: Histologic sections of all submitted blocks are examined by light microscopy. These findings, together with the gross examination, support the pathologic diagnosis. Immunohistochemical stains (with appropriately staining controls) were performed. The lymphoid infiltrate is comprised of a mixture of T cells and B cells, as demonstrated by CD3 and CD20, respectively. GROSS DESCRIPTION: The specimen, labeled "RL, left pharyngeal lesion," is received in formalin and consists of three pink-freedman soft tissue fragments that measure 0.2 cm in diameter each. Specimen is entirely submitted in cassette (A1). JS (under the direct supervision of a pathologist) The Gross Description was prepared using a voice recognition system. The report was reviewed for accuracy; however, sound-alike word errors, addition and/or deletions may occur. If there is any question about this report, please contact Client Services. PATIENT NAME: MARY GEIGER PATHOLOGY DATE OF : 67 REPORT #: [id number] PHYSICIAN: SUBHA HERNANDEZ PCP: ANGELA SAEED MD REPORT IS CONFIDENTIAL AND NOT TO BE RELEASED WITHOUT AUTHORIZATION [facility] [address] [id number] Signed ADDITIONAL NOTES: Immunohistochemical and/or in situ hybridization studies were performed on this case with the appropriate positive controls that react as expected. This test was developed and its performance characteristics determined by [facility]. It has not been cleared or approved by the U.S. Food and Drug Administration. The FDA has determined that such clearance or approval is not necessary. This test is used for clinical purposes. It should not be regarded as investigational or for research. [facility] is certified under the Clinical Laboratory Improvement Amendments of 1988 (CLIA) as qualified to perform high complexity clinical laboratory testing. This assay has not been validated for specimens that have been decalcified. The technical component was performed by [facility], [address] [place] [address] (CLIA# [id number]). [facility], [address] [place] [address] (CLIA# [id number]). PERFORMING LABORATORY: The technical component was performed by [facility], [address] [place] [address] (CLIA# [id number]). Professional interpretation was performed by [facility], [address] [address], [place], [place] [address] (CLIA# [id number]). Diagnostician: Kelly Khanna MD Pathologist Electronically Signed 02/24/2022 Copies: ~ PATIENT NAME: MARY GEIGER PATHOLOGY DATE OF : 67 REPORT #: [id number] PHYSICIAN: SUBHA HERNANDEZ PCP: ANGELA SAEED MD REPORT IS CONFIDENTIAL AND NOT TO BE RELEASED WITHOUT AUTHORIZATION
== END 2022-02-22 10:30 | disposition home or self-care (01) ==
LOC: DS 07:58 → OPS 07:58 → DS 10:30 → OPS 10:30
PROVIDERS: ATTEND Otolaryngology
PROC: 0CBM8ZX Excision of Pharynx, Via Natural or Artificial Opening Endoscopic, Diagnostic (ICD-10-PCS; principal; 2022-02-22 10:30)
DX: J39.2 Other diseases of pharynx (principal); R04.2 Hemoptysis
CPT/HCPCS: 93005; 93010; J1100; J1885; J2001; J2405; J2704; J3010; J7121

== ENCOUNTER 2024-12-16 18:20 | Emergency (ER) | payer OTHER ==
[~2024-12-16] VITALS: Ht 180.3 cm; Wt 79.0 kg
[2024-12-16] MEDS ORDERED: HYDROmorphone HCL 1 MG/ML SYR IV ONE ×3 (20:00→23:00)
[2024-12-16] MEDS ORDERED: LACTATED RINGER'S 1,000 ML IV ONE (20:00)
[2024-12-16] MEDS ORDERED: ondansetron HCL 4 MG/2 ML VIAL IV ONE (20:00)
[2024-12-16] MEDS ORDERED: MORPHINE SULFATE 4 MG/ML VIAL IV ONE (20:00)
[2024-12-16 20:21] LABS: BASOPHILS 0.4 % (0-2); EOSINOPHILS 2.9 % (0-6); HEMATOCRIT 43.1 % (35.0-50.0); HEMOGLOBIN 15.4 g/dL (12.0-18.0); LYMPHOCYTES 14.5 % (24-44); MCH 32.1 (27-36); MCHC 35.8 g/dl (30-36); MCV 89.5 fl (81-99); MONOCYTES 5.2 % (0-12); PLATELET COUNT 195 K/uL (140-440); RBC 4.81 M/ul (4.3-5.7); RDW 13.7 (10.5-15.0)
[2024-12-16 20:36] LABS: ALBUMIN 4.4 g/dL (3.4-5.0); ALBUMIN/GLOBULIN RATIO 1.52 (1.1-2.4); ALCOHOL, MEDICAL <3 ng/dL (<3); ALKALINE PHOSPHATASE 76 U/L (46-116); ALT (SGPT) 28 U/L (14-59); ANION GAP 14.1 (7-21); AST (SGOT) 16 U/L (15-37); BILIRUBIN, TOTAL 0.8 mg/dL (0.2-1.0); BUN/CREATININE RATIO 18.08 (6.0-28.6); CALCIUM 9.1 mg/dL (8.5-10.1); CARBON DIOXIDE 27 mmol/L (21-32); CHLORIDE 99 mmol/L (98-107); CREATININE, SERUM 0.94 mg/dL (0.70-1.30); GLOMERULAR FILTRATION RATE,EST 94 mL/min (>60); POTASSIUM 4.1 mmol/L (3.5-5.1); PROTEIN, TOTAL 7.3 g/dL (6.4-8.2); UREA NITROGEN 17 mg/dL (7-18)
[2024-12-16 22:04] LABS: ABO A; ANTIBODY SCREEN NEGATIVE; RH POSITIVE
[2024-12-16] MEDS ORDERED: PERCOCET 5-3251 EACH PO (22:36)
[2024-12-16] MEDS ORDERED: OXYCODONE/ACETAMINOPHEN 1 TAB HOME.PACK PO ONE (22:45)
[2024-12-16] MEDS ORDERED: KETOROLAC TROMETHAMINE 30 MG/ML VIAL IV ONE (23:00)
[2024-12-16 23:37] VITALS: BP 127/77
== END 2024-12-16 23:39 | disposition home or self-care (01) ==
LOC: ED 18:20
PROVIDERS: Family Medicine
DX: S32.019A Unspecified fracture of first lumbar vertebra, initial encounter for closed fracture (principal); S22.31XA Fracture of one rib, right side, initial encounter for closed fracture; W01.0XXA Fall on same level from slipping, tripping and stumbling without subsequent striking against object, initial encounter; E11.9 Type 2 diabetes mellitus without complications
CPT/HCPCS: 36415; 71260; 72125; 74177; 80053; 85025; 86850; 86900; 86901; 99284-25; G0480; J1171; J1885; J2405; J7121; Q9967

== ENCOUNTER 2025-04-05 05:58 | Emergency (ER) | payer OTHER ==
[~2025-04-05] VITALS: Ht 180.3 cm; Wt 80.0 kg
[~2025-04-05 05:58] MED LIST changes: +PERCOCET 5-3251 EACH PO
[2025-04-05] MEDS ORDERED: DAPAGLIFLOZIN5 MG PO (06:07)
[2025-04-05] MEDS ORDERED: LEVOTHYROXINE50 MCG PO (06:08)
[2025-04-05] MEDS ORDERED: GEMFIBROZIL600 MG PO (06:37)
[2025-04-05] MEDS ORDERED: GLIMEPIRIDE4 MG PO (06:37)
[2025-04-05] MEDS ORDERED: TADALAFIL20 M1 PO (06:38)
[2025-04-05] MEDS ORDERED: AMOXICILLIN/CLAVULANATE K 875 MG TAB PO ONE (06:45)
[2025-04-05 06:49] LABS: BASOPHILS 0.9 % (0.2-1.2); EOSINOPHILS 8.5 % (0.8-7.0); HEMATOCRIT 39.8 % (40.1-51.0); HEMOGLOBIN 14.1 g/dL (13.7-17.5); LYMPHOCYTES 24.6 % (21.8-53.1); MCH 31.5 PG (25.7-32.2); MCHC 35.4 g/dL (32.3-36.5); MONOCYTES 6.7 % (5.3-12.2); NEUTROPHILS 58.8 % (34.0-67.9); PLATELET COUNT 187 K/uL (163-337); RBC 4.47 M/uL (4.63-6.08)
[2025-04-05 06:50] LABS: ALBUMIN 3.5 g/dL (3.4-5.0); ALBUMIN/GLOBULIN RATIO 1.21 (1.1-2.4); BILIRUBIN, TOTAL 0.6 mg/dL (0.2-1.0); BUN/CREATININE RATIO 12.72 (6.0-28.6); CALCIUM 8.3 mg/dL (8.5-10.1); CREATININE, SERUM 1.1 mg/dL (0.70-1.30); PROTEIN, TOTAL 6.4 g/dL (6.4-8.2)
[2025-04-05] MEDS ORDERED: AMOX TR-K CLV1 EAC1 PO (08:36)
[2025-04-05 08:58] VITALS: BP 144/91
== END 2025-04-05 09:00 | disposition home or self-care (01) ==
LOC: ED 05:58
PROVIDERS: Internal Medicine
DX: K04.7 Periapical abscess without sinus (principal); E11.9 Type 2 diabetes mellitus without complications; Z79.899 Other long term (current) drug therapy; Z79.890 Hormone replacement therapy
CPT/HCPCS: 10160; 36415; 70487; 80053; 85025; 99283-25; Q9967